=== PATIENT | male | born 2000 | race Caucasian/White ===

== ENCOUNTER 2022-11-28 08:05 | Day surgery (SDC) | payer OTHER ==
[~2022-11-28 08:05] MED LIST: Lactated Ringers 1,000 ML IV SCH; Lidocaine 1%/Sod Bicarbonate in NS 8.4% 1 ML Syringe IDERM PRN; Sodium Chloride 0.9% 10 ML Syringe FLUSH PRN; Sodium Chloride 0.9% 10 ML Syringe FLUSH SCH
[2022-11-28] MEDS ORDERED: Lidocaine 1% 2 ML ONE (08:42)
[2022-11-28] MEDS ORDERED: Propofol 200 MG/20 ML SDV ONE (08:42)
[2022-11-28] MEDS ORDERED: fentaNYL 100 MCG/2 ML SDV ONE (08:43)
[2022-11-28] MEDS ORDERED: Midazolam 1 MG/ML 2 ML SDV ONE (08:43)
== END 2022-11-28 09:54 | disposition home or self-care (01) ==
LOC: JD.SDS 08:05
PROVIDERS: ATTEND Surgery
DX: K52.9 Noninfective gastroenteritis and colitis, unspecified (principal); K63.89 Other specified diseases of intestine; K57.30 Diverticulosis of large intestine without perforation or abscess without bleeding; Z83.79 Family history of other diseases of the digestive system
CPT/HCPCS: 45380; 45385; J2250; J2704; J3010; J7120; 00811; J3490